=== PATIENT | male | born 1975 | race Caucasian/White ===

== ENCOUNTER 2017-03-02 14:42 | Emergency (ER) | payer MEDICAID ==
[~2017-03-02] VITALS: Ht 165.1 cm; Wt 85.7 kg
[2017-03-02 14:42] VITALS: BP 158/96; PULSE 111; RESP 19; TEMP 98.3; O2SAT 100
[~2017-03-02 14:42] MED LIST: ARIP300S3; IBUP-1480
--- NOTE | 2017-03-02 14:42 | NUR ---
BROUGHT BACK TO BED #7 AND TRIAGED. REPORT GIVEN TO JAYDA
--- NOTE | 2017-03-02 14:50 | NUR ---
Patient to ER bed 5 to gown for evaluation. Side rails up. Report given to Faviola PERRY.
[2017-03-02] MEDS ORDERED: ACETAMINOPHEN 500 MG TABLET PO ONE (15:00)
--- NOTE | 2017-03-02 15:18 | NUR ---
Patient complains of pain to right 2nd toe. Inflammation noted, pedal pulses present. 08/05. Patient states that hit toe on side bed table 2 weeks. No other complaints/injuries per patient or as noted.
--- NOTE | 2017-03-02 15:20 | NUR ---
Dr. Angelo at bedside.
--- NOTE | 2017-03-02 15:43 | NUR ---
Patient given written and verbal discharge instructions and verbalizes understanding. ER MD discussed with patient the results and treatment provided. Patient in stable condition. ID arm band removed. No Rx given. Patient educated on pain management and to follow up with PMD in 2 days. Pain Scale 4/10. Opportunity for questions provided and answered. Went to discharge patient. Patient left without signing discharge papers.
[2017-03-02 15:45] VITALS: BP 158/96; PULSE 111; RESP 19; TEMP 98.3; O2SAT 100
== END 2017-03-02 15:45 | disposition home or self-care (01) ==
LOC: SED 14:42
DX: S93.504A Unspecified sprain of right lesser toe(s), initial encounter (principal); J45.909 Unspecified asthma, uncomplicated; F20.9 Schizophrenia, unspecified; W22.03XA Walked into furniture, initial encounter; Y93.89 Activity, other specified; Y99.8 Other external cause status; Y92.89 Other specified places as the place of occurrence of the external cause
CPT/HCPCS: 99284

== ENCOUNTER 2017-06-20 20:55 | Emergency (ER) | payer MEDICAID ==
[~2017-06-20] VITALS: Ht 165.1 cm; Wt 85.3 kg
[2017-06-20 22:48] VITALS: BP_SYST 138
--- NOTE | 2017-06-21 02:30 | NUR ---
Placed in room H1. Report given to ORLANDO Muñiz.
--- NOTE | 2017-06-21 02:35 | NUR ---
Patient AAO x4, sitting in chair c/o episodes of "sweating and shaking," patient highly anxious. Vital signs stable, no acute distress noted. BS: 108. Will continue to monitor.
--- NOTE | 2017-06-21 02:40 | NUR ---
HAWA Guadalupe at bedside examining patient.
[2017-06-21 03:19] VITALS: BP_SYST 130
--- NOTE | 2017-06-21 03:19 | NUR ---
Patient given written and verbal discharge instructions and verbalizes understanding. ER MD discussed with patient the results and treatment provided. Patient in stable condition. ID arm band removed. No Rx given. Patient educated on pain management and to follow up with PMD. Pain Scale 0/10 . Opportunity for questions provided and answered.
== END 2017-06-21 03:19 | disposition home or self-care (01) ==
LOC: SED 20:55
DX: F43.9 Reaction to severe stress, unspecified (principal); F41.9 Anxiety disorder, unspecified; F20.9 Schizophrenia, unspecified; J45.909 Unspecified asthma, uncomplicated
CPT/HCPCS: 82962; 99283

== ENCOUNTER 2018-10-26 00:09 | Emergency (ER) | payer MEDICAID ==
[~2018-10-26] VITALS: Ht 167.6 cm; Wt 90.7 kg
[~2018-10-26 00:09] MED LIST changes: -IBUP-1480; +IBUP800T54
[2018-10-26 01:10] VITALS: BP_SYST 162
[2018-10-26 03:22] VITALS: BP_SYST 162
== END 2018-10-26 03:22 | disposition home or self-care (01) ==
LOC: SED 00:09
DX: G89.29 Other chronic pain (principal); M54.2 Cervicalgia; M79.674 Pain in right toe(s); R03.0 Elevated blood-pressure reading, without diagnosis of hypertension; J45.909 Unspecified asthma, uncomplicated; F20.9 Schizophrenia, unspecified; Z90.49 Acquired absence of other specified parts of digestive tract
CPT/HCPCS: 72040-TC; 99283

== ENCOUNTER 2019-01-19 21:43 | Emergency (ER) | payer MEDICAID ==
[~2019-01-19] VITALS: Ht 167.6 cm; Wt 72.6 kg
[2019-01-19] MEDS ORDERED: IBUPROFEN 600 MG TABLET PO ONE (23:15)
[2019-01-20 00:01] VITALS: BP_SYST 132
== END 2019-01-20 00:01 | disposition home or self-care (01) ==
LOC: SED 21:43
DX: M10.9 Gout, unspecified (principal); J45.909 Unspecified asthma, uncomplicated; F20.9 Schizophrenia, unspecified; R03.0 Elevated blood-pressure reading, without diagnosis of hypertension; Z79.899 Other long term (current) drug therapy
CPT/HCPCS: 36415; 84550-TC; 99283

== ENCOUNTER 2021-02-17 03:49 | Emergency (ER) | payer MEDICAID ==
[~2021-02-17] VITALS: Ht 167.6 cm; Wt 90.7 kg
[2021-02-17 03:49] VITALS: BP_SYST 156
[2021-02-17] MEDS ORDERED: ACETAMINOPHEN 325 MG TABLET PO ONE (04:15)
[2021-02-17 06:31] VITALS: BP_SYST 155
== END 2021-02-17 06:31 | disposition home or self-care (01) ==
LOC: SED 03:49
DX: M79.601 Pain in right arm (principal); J45.909 Unspecified asthma, uncomplicated; V49.9XXA Car occupant (driver) (passenger) injured in unspecified traffic accident, initial encounter; Y93.89 Activity, other specified; Y92.413 State road as the place of occurrence of the external cause; Y99.8 Other external cause status
CPT/HCPCS: 99283

== ENCOUNTER 2021-07-21 01:51 | Emergency (ER) | payer MEDICAID ==
[~2021-07-21] VITALS: Ht 160 cm; Wt 81.6 kg
--- NOTE | 2021-07-21 01:57 | NUR ---
Patient to ER bed 7 to gown for evaluation. Side rails up.
[2021-07-21 02:00] VITALS: BP_SYST 114
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
[2021-07-21] MEDS ORDERED: KETOROLAC TROMETHAMINE 60 MG/2 ML VIAL IM ONE (02:30)
--- NOTE | 2021-07-21 02:30 | NUR ---
RT ANKLE XRAY
--- NOTE | 2021-07-21 02:45 | NUR ---
US VENOUS DOPPLER BEING DONE RT LEG
--- NOTE | 2021-07-21 02:53 | NUR ---
PT MED TORADOL 60MG IM FOR PT C/O LEG PAIN
--- NOTE | 2021-07-21 04:59 | NUR ---
PT SLEEPING RESP EVEN ;NO DISTRESS NOTED
--- NOTE | 2021-07-21 05:14 | NUR ---
PT AMBULATORY TO BR GAIT STEADY
--- NOTE | 2021-07-21 05:29 | NUR ---
PT SIGNED OUT AMA AGAINST MEDICAL ADVICE AND RISKS; STABLE
[2021-07-21 05:30] VITALS: BP_SYST 116
== END 2021-07-21 08:57 | disposition home or self-care (01) ==
LOC: SED 01:51
DX: M25.571 Pain in right ankle and joints of right foot (principal); M54.2 Cervicalgia; J45.909 Unspecified asthma, uncomplicated; Z79.899 Other long term (current) drug therapy
CPT/HCPCS: 73610; 93971; 96372; 99284; J1885

== ENCOUNTER 2023-03-10 02:52 | Emergency (ER) | payer MEDICAID ==
[~2023-03-10] VITALS: Ht 160 cm; Wt 77.1 kg
[2023-03-10 03:03] VITALS: BP_SYST 154
[2023-03-10] MEDS ORDERED: ACETAMINOPHEN 500 MG TABLET PO ONE (03:30)
[2023-03-10] MEDS ORDERED: KETOROLAC TROMETHAMINE 60 MG/2 ML VIAL IM ONE (03:30)
[2023-03-10] MEDS ORDERED: METOCLOPRAMIDE HCL 10 MG TABLET PO ONE (03:30)
[2023-03-10] MEDS ORDERED: METO-290 PO (03:34)
[2023-03-10] MEDS ORDERED: IBUP-1969 PO (03:34)
[2023-03-10] MEDS ORDERED: ACETAMINOPHEN 325 MG TABLET ONE (03:59)
[2023-03-10 04:07] VITALS: BP_SYST 144
== END 2023-03-10 04:20 | disposition home or self-care (01) ==
LOC: SED 02:52
DX: G43.909 Migraine, unspecified, not intractable, without status migrainosus (principal); R11.0 Nausea; H54.7 Unspecified visual loss; J45.909 Unspecified asthma, uncomplicated; Z79.899 Other long term (current) drug therapy
CPT/HCPCS: 99283; 96372; J8597; J1885